=== PATIENT | male | born 1995 | race African-American/Black ===

== ENCOUNTER 2018-11-02 12:59 | Emergency (ER) | payer OTHER ==
[~2018-11-02] VITALS: Ht 177.8 cm; Wt 77.1 kg
[2018-11-02 13:04] VITALS: BP 133/95
== END 2018-11-02 13:48 | disposition home or self-care (01) ==
LOC: ER 13:01
DX: L02.02 Furuncle of face (principal); L02.214 Cutaneous abscess of groin
CPT/HCPCS: 99283; A4606